=== PATIENT | female | born 1940 ===

== ENCOUNTER → 2025-01-22 | Outpatient (CLI) | payer MEDICARE, SELFPAY ==
--- NOTE | 2025-01-22 15:24 | XR_ITS ---
EXAMINATION: Bilateral AP knees 2 views Bilateral knee left lateral knee 2 views Bilateral Axuni single view TECHNIQUE: Bilateral AP knees standing single view, bilateral PA and a standing single view flexion Right lateral knee left lateral knee standing 2 views Bilateral Axuni single view total 5 views Date and time: January 22, 2025: 1544 hours INDICATIONS: Knee pain years. FINDINGS: Advanced narrowing murc-xn-eqbw lateral joint space right knee Moderate osteoarthritis right patellofemoral joint No fracture or patellar dislocation Advanced narrowing lateral joint space left knee Moderate osteoarthritis left patellofemoral joint No fracture or patellar dislocation IMPRESSION: Advanced narrowing dnrn-xn-lbfj lateral joint space right knee Advanced narrowing lateral joint space left knee
== END | disposition home or self-care (01) ==
PROVIDERS: PCP Orthopaedic Surgery Adult Reconstructive Orthopaedic Surgery; Referring Provider Orthopaedic Surgery Adult Reconstructive Orthopaedic Surgery; Visit Provider Orthopaedic Surgery Adult Reconstructive Orthopaedic Surgery
DX: M25.862 Other specified joint disorders, left knee (principal); M25.861 Other specified joint disorders, right knee
CPT/HCPCS: 73564

== ENCOUNTER 2025-02-19 09:50 | Outpatient (AMB) | payer MEDICARE, OTHER, SELFPAY ==
--- NOTE | 2025-02-19 10:31 | PD.ORTHCLVIS ---
Exam Exam Patient is in no acute distress and is cooperative with the examination today. Breathing is nonlabored. In no respiratory distress. Bilateral extremities were evaluated and demonstrates sensation intact to light touch. Palpable pedal pulses are present. No significant edema is present. Bilateral hips were examined. The patient has no pain with log roll of the hips. Internal rotation to 30 degrees and external rotation to 30 degrees is painless. Negative FADIR. The left knee was examined. The left knee is in valgus alignment. Range of motion from 0-115 degrees. Knee is stable to varus and valgus as well as AP translation with <5mm. Patient has a negative McMurrays. There is no pain with patellofemoral compression and no crepitus noted. The knee is tender to palpation laterally. The right knee was also examined. The right knee is in valgus alignment. Range of motion from 0-120 degrees. Knee is stable to varus and valgus as well as AP translation with <5mm. Patient has a negative McMurrays. There is no pain with patellofemoral compression and no crepitus noted. The knee is tender to palpation laterally. X-rays demonstrate severe valgus deformity of valgus knee arthritis bilaterally Assessment and Plan Problem List (1) Bilateral primary osteoarthritis of knee: Status: Acute Plan: ASSESSMENT AND PLAN 1. Bilateral knee pain: The right knee exhibits more severe avpb-uj-fobq contact compared to the left, contributing to a bow-legged appearance. She has previously experienced relief from injections and is currently taking Celebrex for pain management. Nonoperative treatment options were discussed, including the continuation of injections. The potential benefits and risks of knee replacement surgery were also considered, but it was decided to proceed with nonoperative treatment due to her age and associated risks. Both knees will be injected today to alleviate pain. Additionally, a hip x-ray has been ordered to further evaluate her condition. The patient was advised to continue taking Celebrex as prescribed. Weight loss was encouraged to reduce stress on the knees. The importance of maintaining mobility and avoiding falls was emphasized. Alternative treatments such as physical therapy were discussed but not pursued at this time. Advanced Care Planning Discussion Advance care planning discussed with:: patient Questionairres Past Medical History Past Medical History Have you ever been diagnosed with any of the following: Subjective Immunization / Flu Flu Vaccine in the Last 12 Months: Yes Flu Vaccine Exclusion Criteria: Already Received History of Present Illness Chief complaint: right knee pain HISTORY OF PRESENT ILLNESS I, Jose Oleg, have obtained verbal consent from the patient, to be recorded during this encounter which may include, but not limited to, medical history, examination, treatment plans, and relevant health information.? Patient was informed that recording will be read and reviewed by myself before inclusion in the medical chart. The patient presents for evaluation of bilateral knee pain. She reports that her right knee is more severely affected than the left, with a noticeable bowing outwards. The pain, while not severe, has led to a change in her gait and a slower walking pace due to a fear of falling. She has previously received injections, which provided some relief, and is currently on Celebrex for pain management. Additionally, she reports experiencing pain in her ankles, which she attributes to her weight. She is actively trying to lose weight. She does not experience any burning sensation in her knees. She was recently having some trouble with dizziness and was given meclizine, which helped her get through it. She is not really taking that now. A brain MRI was done and found some blood vessel shrinkage. Review of Systems Review of Systems: All systems negative unless otherwise noted in HPI.
[2025-02-19 10:49] VITALS: BP 129/62; PULSE 51; RESP 19; TEMP 35.6; O2SAT 92; BMI 17.2
[2025-02-19 11:31] VITALS: BP 129/62; PULSE 51; RESP 19; TEMP 35.6; O2SAT 92
--- NOTE | 2025-02-19 11:31 | PD.ORTHCLVIS ---
Vital signs 02/19/25 10:49 02/19/25 11:31 Height 1.63 m Height Method Stated Weight 45.444 kg Weight Measurement Method Standing Scale BMI 17.2 BP 129/62 129/62 Blood Pressure Source Automatic Cuff Blood Pressure Location Right Upper Arm Position Sitting Respiration 19 19 Pulse 51 L 51 L Pulse Source Monitor Temp 96.1 F L 96.1 F L Temp Source Temporal Artery Scan Pulse Oximetry (%) 92 L 92 L Oxygen Delivery Method Room Air Assessment and Plan Problem List (1) Bilateral primary osteoarthritis of knee: Status: Acute Advanced Care Planning Discussion Advance care planning discussed with:: patient Office Procedures GNS Level of Care Nursing/Assessment Patient Status: Established Patient Nursing Assessment/Reassesment: Medication Reconciliation, Update PMH in EMR and Vital Signs Coordination of Care: Complex Care and Chronic Disease 1-5, Education Complex Pt/Fam, Consent,records obtained, informed consent, Results/Orders obtained and Staff clarify orders Established Patient Charge Established Patient Point Assignment: 95 Established Patient Point Charge: EP Level 3 (80-115) Medication Given Medication Given Medication Given: Yes Documented Dose Given: 2 Route: Infiitration Medication Given Medication Given Medication Given: Yes Documented Dose Given: 8 Route: Infiitration Office Meds methylprednisolone acetate 80 mg/mL suspension for injection Performing Provider: Jose Dejesus MD Performing Location: [facility] Administered by: Jose Dejesus MD on 02/19/25 11:32 Dose Route Admin Location Dispensed Lot Number Expiration Date Package [facility] [place] [place] [employer] 160 mg intra-articular KNEE 2 mL [id number] 11/08/26 [address]-0 [id number] [employer] ropivacaine (PF) 2 mg/mL (0.2 %) injection solution Performing Provider: Jose Dejesus MD Performing Location: [facility] Administered by: Jose Dejesus MD on 02/19/25 11:32 Dose Route Admin Location Dispensed Lot Number Expiration Date Package [facility] [employer] 40 mL Infiltration KNEE 40 mL [id number] 04/10/27 22462-560-77 [id number] [facility] Questionairres Past Medical History Past Medical History Have you ever been diagnosed with any of the following: Subjective Immunization / Flu Flu Vaccine in the Last 12 Months: Yes Flu Vaccine Exclusion Criteria: Already Received Review of Systems Review of Systems: All systems negative unless otherwise noted in HPI.
== END 2025-02-19 10:41 | disposition home or self-care (01) ==
LOC: HODSRG 09:50
PROVIDERS: Supervising Provider Orthopaedic Surgery Adult Reconstructive Orthopaedic Surgery; Visit Provider Orthopaedic Surgery Adult Reconstructive Orthopaedic Surgery
DX: M17.0 Bilateral primary osteoarthritis of knee (principal); M25.562 Pain in left knee; M25.561 Pain in right knee
CPT/HCPCS: 20610; 99213; J1010; J2795; G0463